=== PATIENT | female | born 1950 | race Caucasian/White ===

== ENCOUNTER 2016-06-27 20:55 | Emergency (ER) | payer MEDICARE, OTHER ==
[~2016-06-27] VITALS: Ht 165.1 cm; Wt 74.5 kg
[~2016-06-27 20:55] MED LIST: LEVO25TA2 PO; OMEP20CA11 PO
[2016-06-27 20:58] VITALS: BP 128/77; PULSE 82; RESP 16; O2SAT 100
--- NOTE | 2016-06-27 21:19 | ED.REPORT ---
HPI-General Illness Date of Service June 27, 2016 ED Provider: Dr. Luciano Pt is a 65 year old female who presents to the ED s/p left hip surgery with concerns for continued bleeding from to incision. She reports that this has been "oozing dark red blood" for the past several hours. Her surgery was on and proceeded without any complications by Dr. Audrey Mcdowell. Pt denies any dizziness, fevers, signs of infections, or any other complaints. Nursing Notes Stated Complaint: SEVERE BLEEDING FROM HIP Chief Complaint: Extremity Trauma Nursing Notes Reviewed: Yes Allergies: Coded Allergies: latex (Verified Allergy, Unknown, BLISTERS, 07/12/15) Scheduled Levothyroxine (Synthroid) 25 Mcg Tablet 0.125 MCG PO DAILY Omeprazole (Omeprazole) 20 Mg Capsule.dr 20 MG PO DAILY General Time Seen by MD: 21:18 Chief Complaint Other (Bleeding) Hx Obtained From: Patient Arrived By: Walk-in Sudden in Onset?: Yes Onset Occurred: 1 - 4 hours ago Symptom Duration: Since onset Location: : Hip left Severity: Current: No pain currently Severity: Maximum: Mild Similar Sx Previous: Yes Past Medical History Past Surgical History L Hip surgergy Smoking History Never Smoker Ambulatory Status Independent Review of Systems Full Review of Systems Constitutional: Denies: Chills, Fever, Malaise, Weakness - generalized Respiratory: Denies: Non-productive cough, Shortness of breath, Wheezing Cardiovascular: Denies: Chest pain, Syncope GI: Denies: Abdominal pain, Constipation, Diarrhea, Nausea, Vomiting Female: Denies: Dysuria, Flank pain, Urinary urgency Musculoskeletal: Denies: Back pain, Neck pain Hematologic: Reports Bleeding Skin: Denies Diaphoresis Neurologic: Denies: Change LOC, Dizziness Complete sys rev & neg: except as marked. Physical Exam Vital Signs Vital Signs Date Time Temp Pulse Resp B/P Pulse Ox O2 Delivery O2 Flow Rate FiO2 06/27/16 20:58 36.8 82 16 128/77 100 Room Air Initial VS: Reviewed General/Constitutional: Well-developed, Well-nourished Head / Eyes: Atraumatic, Normocephalic, PERRL ENT: Mucous membranes moist, Conjunctiva normal, No scleral icterus Neck: Supple, Non-tender, Full range of motion Respiratory: Breath sounds normal, Clear to auscultation, No respiratory distress Cardiovascular: Regular rate & rhythm, Heart sounds normal, Intact distal pulses Skin: Warm, Dry, No cyanosis Neurologic: Alert, Oriented, Nonfocal Lower Extremity / Pelvis / MS: Inspection NL, No deformity, Neurologic intact, Vascular intact Incision about left hip appears to be healing well, no signs of infection or active bleeding Dried, dark red blood about her left buttock Interpretation & Diagnostics Lab Results Interpretation Result Diagram: 06/27/16211206/27/162112 Test 06/27/16 21:13 White Blood Count 8.2th/mm3 (3.8-10.1) Red Blood Count 4.09mil/mm3 (3.90-5.20) Hemoglobin 11.7g/dL (12.0-15.6) Hematocrit 37.8% (35.0-46.0) Mean Corpuscular Volume 92.4fL (81-100) Mean Corpuscular Hemoglobin 28.6pg (27.0-35.0) Mean Corpuscular Hemoglobin Concent 31.0% (32.0-37.0) Red Cell Distribution Width 13.7% (12.3-15.4) Platelet Count 322bil/L (150-400) Neutrophils (%) (Auto) 42.8% (40-74) Lymphocytes (%) (Auto) 34.9% (14-46) Monocytes (%) (Auto) 10.4% (4-12) Eosinophils (%) (Auto) 10.6% (0-5) Basophils (%) (Auto) 0.9% (0-3) Erythrocyte Sedimentation Rate 45mm/hr (0-40) Prothrombin Time 9.5sec (8.1-12.5) Prothromb Time International Ratio 0.89ratio Sodium Level 139mEq/L (134-144) Potassium Level 3.9mEq/L (3.5-5.2) Chloride Level 101mEq/L (97-108) Carbon Dioxide Level 25mmol/L (18-29) Blood Urea Nitrogen 27mg/dL (8-27) Creatinine 0.70mg/dL (0.57-1.00) Estimat Glomerular Filtration Rate 120mL/min (>59) Glucose Level 108mg/dL (60-99) Calcium Level 9.5mg/dL (8.5-10.1) Total Bilirubin 0.3mg/dL (0.0-1.2) Aspartate Amino Transf (AST/SGOT) 20U/L (0-50) Alanine Aminotransferase (ALT/SGPT) 11U/L (0-32) Alkaline Phosphatase 144U/L (25-165) C-Reactive Protein 0.4mg/dL (0.0-0.5) Total Protein 7.7g/dL (6.4-8.4) Albumin 3.9g/dL (3.4-5.0) Hold Dudley Top Tube Received (Received) Re-Eval/Medical Decision Med Decision/Clinical Course 65-year-old female just post hip replacement by Dr. Mcdowell, presents with a draining hematoma with dark blood. No fever no sign of infection at this point. Blood is essentially been drained completely and she is placed in a mild compression dressing. There is a small opening in the middle of the incision which is draining hematoma. No other dehiscence noted. She is discharged in stable condition for follow-up with Dr. Mcdowell in the office or at [facility]. Source of Hx: Old records Time of Eval: 22:59 Re-Evaluation/Progress Note: Pt is rechecked and informed of the plan to discharge her at this time, she understands and agrees, all questions are addressed. Counseled Regarding: Diagnosis, Need for follow-up, When/why to return to ED Discharge & Departure Shift Change Sign-Out Response to Therapy: Improved Primary Impression: Hematoma complicating a procedure Disposition: Home Discharge Condition All VS Reviewed: Yes Condition: Stable Patient Instructions: Hematoma (ED) Additional Instructions: Call Dr. Mcdowell's office on Wednesday for follow-up. I have left a message with her service, informing her of your visit tonight. Where a light compression dressing over the surgical wound. Use abdomen pads or similar to absorb any further drainage. Follow-up with Dr. Mcdowell's as soon as she is able to see you. If you develop fever, redness around the wound, or active bright red bleeding, return or follow up at Dr. Mcdowell's [facility] emergency room. Referrals: Oneil Hernandez MD (PCP) Audrey Mcdowell MD Scribe Attestation Portions of this note were transcribed by Deana Jacob. I, Dr. Luciano personally performed the history, physical exam and medical decision-making; I reviewed and confirmed the accuracy of the information in the transcribed note. Signed by: Danuta To, 06/27/2016 0662 copies to: Oneil eHrnandez MD; Audrey Mcdowell MD, Christopher W MD June 27, 2016 21:19 GREGOR JACOB June 27, 2016 22:36
[2016-06-27 21:25] LABS: BASOPHILS % (AUTO) 0.9 % (0-3); EOSINOPHILS % (AUTO) 10.6 % (0-5); MONOCYTES % (AUTO) 10.4 % (4-12); Mean Corpuscular Hemoglobin 28.6 pg (27.0-35.0); Mean Corpuscular Volume 92.4 fL (81-100); NEUTROPHILS % (AUTO) 42.8 % (40-74); Platelet Count 322 bil/L (150-400)
[2016-06-27 21:41] LABS: INR 0.89 ratio
[2016-06-27 21:50] LABS: ERYTHROCYTE SEDIMENTATION RATE 45 mm/hr (0-40)
== END 2016-06-27 23:22 | disposition home or self-care (01) ==
LOC: SED 20:55
DX: M96.840 Postprocedural hematoma of a musculoskeletal structure following a musculoskeletal system procedure (principal); Z96.641 Presence of right artificial hip joint; Y84.8 Other medical procedures as the cause of abnormal reaction of the patient, or of later complication, without mention of misadventure at the time of the procedure; Y92.89 Other specified places as the place of occurrence of the external cause; Y99.8 Other external cause status